=== PATIENT | female | born 1980 | race Caucasian/White ===

== ENCOUNTER 2016-11-07 17:03 | Emergency (ER) | payer BC ==
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
== END 2016-11-07 18:58 | disposition home or self-care (01) ==
LOC: JD.ED 17:03
CPT/HCPCS: 99283

== ENCOUNTER 2024-09-09 08:18 | Emergency (ER) | payer BC, MEDICAID ==
[2024-09-09] MEDS ORDERED: Sodium Chloride 0.9% 10 ML Syringe FLUSH PRN (08:51)
[2024-09-09] MEDS: Ondansetron 4 MG/2 ML SDV IVPUSH ONE (09:06)
[2024-09-09] MEDS: Sodium Chloride 0.9% 1,000 ML IV STA (09:06)
[2024-09-09] MEDS: HYDROmorphone 0.5 MG/0.5 ML Syringe IVPUSH ONE ×2 (09:06→10:39)
[2024-09-09 09:17] LABS: BASOPHILS PERCENT AUTO 0.2 % (0.0-1.0); EOSINOPHILS ABSOLUTE AUTO 0.2 K/mm3 (0.0-0.4); EOSINOPHILS PERCENT AUTO 2.1 % (0.0-6.0); HEMATOCRIT 37.9 % (37.0-47.0); HEMOGLOBIN 12.2 gm/dl (12.0-16.0); IMMATURE GRAN ABSOLUTE AUTO 0.03 K/mm3 (0.00-0.05); IMMATURE GRAN PERCENT AUTO 0.3 % (0.0-0.4); LYMPHOCYTES ABSOLUTE AUTO 0.4 K/mm3 (1.0-4.8); MEAN CORPUSCULAR HEMOGLOBIN 27.4 pg (28.0-32.0); MEAN CORPUSCULAR HGB CONC 32.2 g/dl (32.0-36.0); MEAN CORPUSCULAR VOLUME 85.2 fl (83.0-99.0); MEAN PLATELET VOLUME 10.3 fl (9.4-12.3); MONOCYTES ABSOLUTE AUTO 0.7 K/mm3 (0.0-0.8); MONOCYTES PERCENT AUTO 7.7 % (0.0-8.0); NEUTROPHILS ABSOLUTE AUTO 7.6 K/mm3 (1.8-7.7); NEUTROPHILS PERCENT AUTO 85.7 % (41.0-71.0); PLATELET COUNT,PLT 290 K/mm3 (150-400); RED BLOOD CELL COUNT 4.45 M/mm3 (4.10-5.30); WHITE BLOOD CELL COUNT,WBC 8.84 K/mm3 (3.9-11.3)
[2024-09-09 09:37] LABS: BILIRUBIN TOTAL 0.9 mg/dL (0.2-1.0); BUN/CREATININE RATIO 8.9 (14-18); CALCIUM 8.5 mg/dL (8.5-10.1); CREATININE 0.9 mg/dL (0.55-1.02); EST CRCL DRUG DOSING (CG) 60.82 mL/min; POTASSIUM,K 3.3 mEq/L (3.5-5.1); PROTEIN TOTAL,TP 5.9 g/dl (6.4-8.2)
[2024-09-09 09:52] LABS: APPEARANCE,URINE CLEAR (Clear); BILIRUBIN,URINE NEGATIVE (Negative); COLOR,URINE YELLOW (Yellow); GLUCOSE,URINE NEGATIVE (Negative); KETONES,URINE NEGATIVE (Negative); LEUKOCYTE ESTERASE,URINE NEGATIVE (Negative); NITRITE,URINE NEGATIVE (Negative); OCCULT BLOOD,URINE TRACE-INTACT (Negative); PROTEIN,URINE 1+ (Negative)
[2024-09-09 09:58] LABS: ANION GAP 13.3 (5-15)
[2024-09-09 10:07] LABS: BACTERIA,URINE FEW /hpf (FEW); MUCUS,URINE FEW /hpf (FEW); RBC,URINE 0-5 /hpf (0-5); WBC,URINE 0-5 /hpf (0-5)
[2024-09-09 10:59] VITALS: BP 133/70; PULSE 69
== END 2024-09-09 10:54 | disposition home or self-care (01) ==
LOC: JD.ED 08:18
DX: K52.9 Noninfective gastroenteritis and colitis, unspecified (principal); N39.0 Urinary tract infection, site not specified; F17.210 Nicotine dependence, cigarettes, uncomplicated; Z88.0 Allergy status to penicillin; Z79.899 Other long term (current) drug therapy; Z90.49 Acquired absence of other specified parts of digestive tract
CPT/HCPCS: 36415; 74176; 80053; 81001; 83690; 84703; 85025; 96361; 96374; 96375; 96376; 99284; J2405; J7030

== ENCOUNTER 2025-05-31 13:04 | Emergency (ER) | payer MEDICAID ==
[2025-05-31 14:26] VITALS: BP 135/75; PULSE 82
== END 2025-05-31 14:22 | disposition home or self-care (01) ==
LOC: JD.ED 13:04
DX: G89.29 Other chronic pain (principal); M54.50 Low back pain, unspecified; Z88.0 Allergy status to penicillin; Z90.49 Acquired absence of other specified parts of digestive tract; Z98.84 Bariatric surgery status
CPT/HCPCS: 99283

== ENCOUNTER 2025-06-09 15:19 | Emergency (ER) | payer MEDICAID | END 2025-06-09 16:00 | disposition left against medical advice (07) | LOC: JD.ED 15:19 | DX: Z53.21 Procedure and treatment not carried out due to patient leaving prior to being seen by health care provider (principal) ==